=== PATIENT | female | born 1980 | race Hispanic/Latino ===

== ENCOUNTER 2017-03-31 20:25 | Emergency (ER) | payer OTHER, SELFPAY ==
[2017-03-31] MEDS ORDERED: Ketorolac Tromethamine 30 MG/ML VIAL ONE (21:04)
[2017-03-31] MEDS ORDERED: diphenhydrAMINE HCl 50 MG/ML 1 ML VIAL ONE (21:04)
[2017-03-31] MEDS ORDERED: Metoclopramide HCl 10 MG/2 ML VIAL ONE (21:04)
--- NOTE | 2017-03-31 21:55 | CT ---
CT BRAIN NONCONTRAST: HISTORY: 36-year-old female with right sided severe headache. FINDINGS: The ventricles are normal in size and configuration. There is no midline shift or any other mass ef fect. There is no evidence of acute intracranial hemorrhage, large cortical infarct, or extraaxial fluid collection. The broderick matter /white matter differentiation is maintained. The calvarium is in tact. The tympanomastoid cavities, and the upper portions of the paranasal sinuses included in thes e images, are grossly clear. IMPRESSION: Normal. renetta POS: [facility]
== END 2017-03-31 22:52 | disposition home or self-care (01) ==
LOC: ERS 20:25
DX: R51 Headache (principal)
CPT/HCPCS: 70450; 96365; 96375; J1200; J1885; J2765

== ENCOUNTER 2018-03-28 18:09 | Emergency (ER) | payer SELFPAY ==
[2018-03-28 19:06] LABS: #Basophils 0.1 thou/uL (0.0-0.2); #Eosinphils 0.1 thou/uL (0.0-0.7); #Lymphocytes 2.5 thou/uL (1.20-3.40); #Monocytes 0.4 thou/uL (0.11-0.59); #Neutrophils 3.6 thou/uL (1.40-6.50); %Basophils 0.9 % (0.0-1.0); %Eosinophils 1.7 % (0.0-10.0); %Lymphocytes 37.5 % (21.0-51.0); Band 1 % (5-11); Eosinophils 3 % (0-10); Hemoglobin 12.1 g/dL (12.0-16.0); Lymphocytes 39 % (21-51); MDiff Complete? YES; Mean Corpuscular HGB CONC 34.9 g/dL (32.0-36.0); Mean Corpuscular Volume 88.9 fL (78.0-98.0); Mean Platelet Volume 12.4 fL (7.4-10.4); Monocytes 1 % (0-10); Neutrophil 55 % (42-75); PLT Morphology Comment Appears Adequate; Platelet Count 135 thou/uL (130-400); RBC Distribution Width 11.3 % (11.5-14.5); Red Blood Cell (RBC) Count 3.91 mill/uL (4.20-5.40); White Blood Cell (WBC) Count 6.7 thou/uL (4.8-10.8)
[2018-03-28] MEDS ORDERED: Aspirin 325 MG TAB ONE (19:13)
[2018-03-28 19:14] LABS: ALT (SGPT) 20 U/L (8-55); AST (SGOT) 22 U/L (5-34); Albumin 4.3 g/dL (3.5-5.0); Alkaline Phosphatase 92 U/L (40-150); Anion Gap 14 mmol/L (10-20); BUN (Urea Nitrogen) 16 mg/dL (7.0-18.7); Bilirubin, Total 0.2 mg/dL (0.2-1.2); CK (CPK) 119 U/L (29-168); Calc. Creatinine Clearance 0 mL/min (70-130); Calcium 9.4 mg/dL (7.8-10.44); Carbon Dioxide 24 mmol/L (22-29); Chloride 106 mmol/L (98-107); Estimated GFR-MDRD 77; Globulin 3.6 g/dL (2.4-3.5); Glucose 99 mg/dL (70-105); Lipase 27 U/L (8-78); Protein, Total 7.9 g/dL (6.0-8.3); Sodium 140 mmol/L (136-145)
[2018-03-28 19:15] LABS: CKMB 1.2 ng/mL (0-6.6); Troponin I 0.011 ng/mL (< 0.028)
[2018-03-28] MEDS ORDERED: Ketorolac Tromethamine 30 MG/ML VIAL ONE (19:32)
--- NOTE | 2018-03-28 20:09 | RAD ---
PA AND LATERAL CHEST: 03/28/18 HISTORY: Breast cancer in remission. Chest pain. Heart size and mediastinum are within normal limits. The lungs are clear of infiltrates. No signific ant bony findings. IMPRESSION: No active intrathoracic disease. POS: [facility]
== END 2018-03-28 20:40 | disposition home or self-care (01) ==
LOC: SCSER 18:09
DX: R07.89 Other chest pain (principal); Z79.899 Other long term (current) drug therapy
CPT/HCPCS: 36415; 71046; 80053; 82550; 82553; 83690; 84484; 85025; 85379; 93005; 96374; J1885

== ENCOUNTER 2018-07-19 20:11 | Emergency (ER) | payer OTHER, SELFPAY ==
[2018-07-19] MEDS ORDERED: Ketorolac Tromethamine 30 MG/ML VIAL ONE (20:29)
[2018-07-19] MEDS ORDERED: Ondansetron PF 4 MG/2 ML Vial ONE (20:29)
[2018-07-19 20:31] LABS: Bilirubin Small (Negative); Blood, Urine Moderate (Negative); Clarity Cloudy (Clear); Glucose, Urine (Dipstick) Negative (Negative); Leukocyte Moderate (Negative); Nitrite Positive (Negative); Protein, Urine (Dipstick) 30 mg/dL (Neg-Trace); Specific Gravity, Urine 1.015 (1.005-1.030); pH, Urine 6.5 (5.0-9.0)
[2018-07-19 20:34] LABS: Bacteria/HPF 3+ HPF (None Seen); Oval Fat Bodies/HPF 1+ HPF (None Seen); Renal Epithelial 0-3 HPF (0-3); WBC/HPF 21-50 HPF (0-3)
[2018-07-19 20:35] LABS: Pregnancy Test - Urine (BHCG) Negative (Negative); Pregu Control Background? CLEAR/WHITE (CLR/WHITE); Pregu Control Bar Appear? YES (CONTROL BAR); Specific Gravity 1.015 (1.002-1.036)
[2018-07-19] MEDS ORDERED: Acetaminophen 500 MG TAB ONE (20:54)
[2018-07-19] MEDS ORDERED: cefTRIAXone\\ROCEPHIN 2 GM VIAL ONE (20:54)
[2018-07-19 20:56] LABS: #Basophils 0.1 thou/uL (0.0-0.2); #Lymphocytes 1.4 thou/uL (1.20-3.40); #Monocytes 0.7 thou/uL (0.11-0.59); %Lymphocytes 13.4 % (21.0-51.0); %Monocytes 7.3 % (0.0-10.0); %Neutrophils 78.3 % (42.0-75.0); Mean Corpuscular HGB CONC 33.6 g/dL (32.0-36.0); Mean Corpuscular Hemoglobin 30.4 pg (27.0-31.0); Mean Corpuscular Volume 90.3 fL (78.0-98.0); Mean Platelet Volume 10.2 fL (7.4-10.4); Platelet Count 138 thou/uL (130-400); RBC Distribution Width 11.8 % (11.5-14.5); Red Blood Cell (RBC) Count 4.28 mill/uL (4.20-5.40); White Blood Cell (WBC) Count 10.2 thou/uL (4.8-10.8)
[2018-07-19 21:09] LABS: ALT (SGPT) 15 U/L (8-55); AST (SGOT) 19 U/L (5-34); Albumin 4.3 g/dL (3.5-5.0); Alkaline Phosphatase 97 U/L (40-150); Anion Gap 16 mmol/L (10-20); BUN (Urea Nitrogen) 11 mg/dL (7.0-18.7); Calc. Creatinine Clearance 0 mL/min (70-130); Calcium 9.2 mg/dL (7.8-10.44); Carbon Dioxide 22 mmol/L (22-29); Chloride 101 mmol/L (98-107); Estimated GFR-MDRD 65; Globulin 3.5 g/dL (2.4-3.5); Glucose 110 mg/dL (70-105); Lipase 9 U/L (8-78); Potassium 3.6 mmol/L (3.5-5.1); Protein, Total 7.8 g/dL (6.0-8.3); Sodium 135 mmol/L (136-145)
== END 2018-07-19 22:37 | disposition home or self-care (01) ==
LOC: SCSER 20:11
DX: N39.0 Urinary tract infection, site not specified (principal); Z79.899 Other long term (current) drug therapy
CPT/HCPCS: 80053; 81003; 81015; 81025; 83605; 83690; 85025; 87077; 87086; 87186; 87804; 96361; 96374; 96375; J0696; J1885; J2405

== ENCOUNTER 2020-08-09 09:52 | Outpatient (CLI) | payer OTHER ==
--- NOTE | 2020-08-09 11:20 | ULT ---
Pelvic ultrasound: 08/09/2020 COMPARISON: None HISTORY: Pelvic pain TECHNIQUE: Multiplanar grayscale sonographic imaging of the pelvis is obtained with transabdominal an d endovaginal imaging. The ovaries are assessed with Doppler interrogation including color flow and spectral analysis. FINDINGS: The uterus measures 7.6 x 4.3 x 4.1 cm. Endometrial stripe measures approximately 1.3 cm in transverse dimension. This is within normal limits for a premenopausal female has upper limits of normal for this age group is 1.5 cm. The right ovary measures 2.7 x 1.9 x 1.8 cm and the left ovary m easures 2.4 x 1.7 x 2.9 cm. Ovaries demonstrate normal blood flow. No free fluid is seen in the pelvis. There is a small cyst in the left ovary measuring up to 1.5 cm. IMPRESSION: No acute findings. Incidental findings as detailed above.
== END 2020-08-09 09:53 | disposition home or self-care (01) ==
LOC: BICULT 09:52
PROVIDERS: ATTEND General Practice
DX: R10.2 Pelvic and perineal pain (principal); N83.202 Unspecified ovarian cyst, left side
CPT/HCPCS: 76856